=== PATIENT | male | born 1940 ===

== ENCOUNTER 2021-02-08 21:34 | Inpatient (IN) | payer MEDICARE ==
[~2021-02-08] VITALS: Ht 175.3 cm; Wt 69.1 kg
--- NOTE | 2021-02-08 22:07 | NUR ---
PT BIB [facility] TO ROOM 16, C/O RESP DISTRESS, AND HISTORY OF COPD. PT PLACED ON O2 SAT PROBE AND CR MONITOR, AND REMAINS ON O2 NC 2LPM, HIS BASELINE. TECH TO BEDSIDE AND EKG DONE, AND PA TO BEDSIDE TO EVAL ASSESS AND WRITE ORDERS. PT CALM AND COOPERATIVE AND IN NO ACUTE DISTRESS AT THIS TIME, WITH EASY RESPIRATIONS COMPARED TO WHEN HE WAS PICKED UP BY EMS, PER THE PT .
[2021-02-08 22:31] LABS: BASOPHILS % (AUTO) 0 % (0-1); EOSINOPHILS % (AUTO) 0 % (1-7); LYMPHOCYTES % (AUTO) 4 % (22-44); MEAN CORPUSCULAR HEMOGLOBIN 28.8 pg (27.5-34.5); MEAN CORPUSCULAR HGB CONC 33.6 g/dL (33.2-36.2); MEAN PLATELET VOLUME 7.8 fL (7.4-10.4); MONOCYTES % (AUTO) 7 % (2-9); NEUTROPHILS % (AUTO) 89 % (42-75); PLATELET COUNT 285 x10^3/uL (130-400); RED BLOOD COUNT 4.37 x10^6/uL (4.38-5.82)
[2021-02-08 22:39] LABS: ALANINE AMINOTRANSFERASE 13 U/L (12-78); ALBUMIN 2.4 g/dL (3.4-5.0); CALCIUM 8.4 mg/dL (8.5-10.1); CREATININE 1.79 mg/dL (0.7-1.3)
[2021-02-08 22:43] LABS: ALKALINE PHOSPHATASE 71 U/L (45-117); BILIRUBIN,TOTAL 0.7 mg/dL (0.2-1.0); TOTAL PROTEIN 7.5 g/dL (6.4-8.2); TROPONIN I < 0.015 ng/mL (0.000-0.045)
--- NOTE | 2021-02-08 22:56 | NUR ---
EXT [facility] [employer]ELOPER TO BEDSIDE AND [facility] BLOOD CULTURES. PT TO GO TO CT SCAN, AND WHEN BACK, ANTIBIOTICS WILL BE STARTED.
[2021-02-08] MEDS ORDERED: CEFTRIAXONE 1,000 MG in DEXTROSE 5% 50 ML IVPB ONE (23:00)
[2021-02-08] MEDS ORDERED: AZITHROMYCIN 500 MG in SODIUM CHLORIDE 0.9% 250 ML IV ONE (23:00)
[2021-02-08] MEDS: PLEASE ENTER ALLERGIES MC SCH (23:00)
[2021-02-08 23:10] LABS: ANION GAP 5 mmol/L (5-15); CHLORIDE 104 mmol/L (98-107)
--- NOTE | 2021-02-08 23:21 | NUR ---
PT SWABBED FOR COVID AND SAMPLE WALKED TO LAB. PT IN NO RESPIRATORY DISTRESS.
--- NOTE | 2021-02-09 01:02 | NUR ---
REPORT FROM JOHN SABA
[2021-02-09] MEDS: PLEASE ENTER ALLERGIES MC SCH ×3 (01:03→22:08)
[2021-02-09 01:30] VITALS: BP 103/64
[2021-02-09 08:40] VITALS: BP 97/57
[2021-02-09] MEDS ORDERED: ONDANSETRON 2MG/ML, 2ML IVPush PRN (09:00)
[2021-02-09] MEDS ORDERED: ACETAMINOPHEN 325 MG TABLET PO PRN (09:00)
[2021-02-09] MEDS ORDERED: FINA5TAB4 PO (11:10)
[2021-02-09] MEDS ORDERED: BUDE10.7 INH (11:10)
[2021-02-09] MEDS ORDERED: ASPI-963 PO (11:10)
[2021-02-09] MEDS ORDERED: OMEP-110 PO (11:10)
[2021-02-09] MEDS ORDERED: LISI2.5T PO (11:10)
[2021-02-09] MEDS ORDERED: SODI650T PO (11:10)
[2021-02-09] MEDS: CEFTRIAXONE 1,000 MG in DEXTROSE 5% 50 ML IVPB SCH (11:13)
[2021-02-09] MEDS: AZITHROMYCIN 500 MG in SODIUM CHLORIDE 0.9% 250 ML IV SCH (12:18)
[2021-02-09 13:43] VITALS: BP 117/68
[2021-02-09] MEDS: INSULIN LISPRO 100 UNITS/ML, PEN SQ-INSULIN SCH ×2 (16:46→22:08)
[2021-02-09 19:50] VITALS: BP 122/74
[2021-02-09] MEDS: SODIUM BICARBONATE 650 MG TABLET PO SCH (22:04)
[2021-02-10 01:30] VITALS: BP 116/68
[2021-02-10 05:55] LABS: BASOPHILS % (AUTO) 1 % (0-1); EOSINOPHILS % (AUTO) 3 % (1-7); LYMPHOCYTES % (AUTO) 8 % (22-44); MEAN CORPUSCULAR HEMOGLOBIN 29.1 pg (27.5-34.5); MEAN CORPUSCULAR HGB CONC 33.9 g/dL (33.2-36.2); MEAN PLATELET VOLUME 7.9 fL (7.4-10.4); MONOCYTES % (AUTO) 9 % (2-9); NEUTROPHILS % (AUTO) 79 % (42-75); PLATELET COUNT 279 x10^3/uL (130-400); RED BLOOD COUNT 4.15 x10^6/uL (4.38-5.82); RED CELL DISTRIBUTION WIDTH 13.2 % (9.4-14.8)
[2021-02-10 06:00] LABS: ALBUMIN 2.1 g/dL (3.4-5.0); ANION GAP 6 mmol/L (5-15); CALCIUM 8.5 mg/dL (8.5-10.1); CHLORIDE 106 mmol/L (98-107)
[2021-02-10 06:05] LABS: ALANINE AMINOTRANSFERASE 14 U/L (12-78); ALKALINE PHOSPHATASE 73 U/L (45-117); BILIRUBIN,TOTAL 0.6 mg/dL (0.2-1.0); CREATININE 1.44 mg/dL (0.7-1.3)
[2021-02-10] MEDS: PLEASE ENTER ALLERGIES MC SCH ×2 (07:26→14:16)
[2021-02-10] MEDS: INSULIN LISPRO 100 UNITS/ML, PEN SQ-INSULIN SCH ×4 (08:15→20:45)
[2021-02-10] MEDS: CEFTRIAXONE 1,000 MG in DEXTROSE 5% 50 ML IVPB SCH (08:26)
[2021-02-10 08:27] VITALS: BP 122/74
[2021-02-10] MEDS: SODIUM BICARBONATE 650 MG TABLET PO SCH ×2 (08:27→20:42)
[2021-02-10] MEDS ORDERED: OMEPRAZOLE 20 MG CAPSULE.DR PO SCH (09:00)
[2021-02-10] MEDS ORDERED: ASPIRIN 81 MG TABLET EC PO SCH (09:00)
[2021-02-10] MEDS ORDERED: FINASTERIDE 5 MG TABLET PO SCH (09:00)
[2021-02-10] MEDS ORDERED: LISINOPRIL 5 MG TABLET PO SCH (09:00)
[2021-02-10] MEDS: AZITHROMYCIN 500 MG in SODIUM CHLORIDE 0.9% 250 ML IV SCH (10:30)
[2021-02-10 14:46] VITALS: BP 101/58
[2021-02-10 19:26] VITALS: BP 111/66
[2021-02-10] MEDS ORDERED: HEPARIN 5,000 UNITS/ML, 1ML SQ SCH (19:30)
[2021-02-10] MEDS: HEPARIN 5,000 UNITS/ML, 1ML SQ SCH (20:43)
[2021-02-10] MEDS: RIFAMPIN 300 MG CAPSULE PO SCH (20:44)
[2021-02-10] MEDS: ETHAMBUTOL 400 MG TABLET PO SCH (20:45)
[2021-02-10] MEDS ORDERED: ETHAMBUTOL 400 MG TABLET PO SCH (21:00)
[2021-02-10] MEDS ORDERED: ACETYLCYSTEINE 10%, 10ML IPPB SCH (21:00)
[2021-02-10] MEDS ORDERED: RIFAMPIN 300 MG CAPSULE PO SCH (21:00)
[2021-02-10] MEDS ORDERED: ACETYLCYSTEINE 20%, 4ML IPPB SCH (21:00)
[2021-02-10] MEDS: ALBUTEROL/IPRATROPIUM 2.5MG/0.5MG, 3 ML HHN SCH (21:32)
[2021-02-11 01:32] VITALS: BP 149/65
[2021-02-11] MEDS: ALBUTEROL/IPRATROPIUM 2.5MG/0.5MG, 3 ML HHN SCH ×4 (04:07→21:10)
[2021-02-11] MEDS: SODIUM CHLORIDE INHALATION 7%, 4 ML NPPB SCH ×4 (04:07→21:10)
[2021-02-11] MEDS: OMEPRAZOLE 20 MG CAPSULE.DR PO SCH (05:44)
[2021-02-11 06:24] LABS: BASOPHILS % (AUTO) 1 % (0-1); EOSINOPHILS % (AUTO) 3 % (1-7); LYMPHOCYTES % (AUTO) 6 % (22-44); MEAN CORPUSCULAR HEMOGLOBIN 28.8 pg (27.5-34.5); MEAN CORPUSCULAR HGB CONC 33.5 g/dL (33.2-36.2); MONOCYTES % (AUTO) 10 % (2-9); NEUTROPHILS % (AUTO) 81 % (42-75); PLATELET COUNT 308 x10^3/uL (130-400); RED BLOOD COUNT 4.12 x10^6/uL (4.38-5.82); RED CELL DISTRIBUTION WIDTH 13.2 % (9.4-14.8)
[2021-02-11 06:33] LABS: ALANINE AMINOTRANSFERASE 16 U/L (12-78); ANION GAP 6 mmol/L (5-15); CALCIUM 8.9 mg/dL (8.5-10.1); CHLORIDE 105 mmol/L (98-107); CREATININE 1.33 mg/dL (0.7-1.3)
[2021-02-11 06:36] LABS: ALKALINE PHOSPHATASE 76 U/L (45-117); BILIRUBIN,TOTAL 0.9 mg/dL (0.2-1.0); TOTAL PROTEIN 7.3 g/dL (6.4-8.2)
[2021-02-11] MEDS: INSULIN LISPRO 100 UNITS/ML, PEN SQ-INSULIN SCH ×4 (07:00→20:47)
[2021-02-11 07:20] VITALS: BP 112/70
[2021-02-11] MEDS: HEPARIN 5,000 UNITS/ML, 1ML SQ SCH ×2 (08:38→21:14)
[2021-02-11] MEDS: ACETAMINOPHEN 325 MG TABLET PO PRN ×3 (08:38→19:10)
[2021-02-11] MEDS: ASPIRIN 81 MG TABLET EC PO SCH (08:38)
[2021-02-11] MEDS: SODIUM BICARBONATE 650 MG TABLET PO SCH ×2 (08:39→20:46)
[2021-02-11] MEDS: LISINOPRIL 5 MG TABLET PO SCH (08:40)
[2021-02-11] MEDS: RIFAMPIN 300 MG CAPSULE PO SCH ×2 (08:42→20:46)
[2021-02-11] MEDS: FINASTERIDE 5 MG TABLET PO SCH (08:42)
[2021-02-11] MEDS: ETHAMBUTOL 400 MG TABLET PO SCH ×2 (08:43→20:47)
[2021-02-11] MEDS ORDERED: AZITHROMYCIN 250 MG in SODIUM CHLORIDE 0.9% 250 ML IV SCH (09:00)
[2021-02-11] MEDS: CEFTRIAXONE 1,000 MG in DEXTROSE 5% 50 ML IVPB SCH (09:22)
[2021-02-11] MEDS: BUDESONIDE 0.5 MG/2 ML INHA NPPB SCH ×2 (10:00→21:10)
[2021-02-11] MEDS: AZITHROMYCIN 500 MG in SODIUM CHLORIDE 0.9% 250 ML IV SCH (11:20)
[2021-02-11 13:40] VITALS: BP 93/56
[2021-02-11] MEDS ORDERED: LIDOCAINE 4% TOPICAL SOLUTION 50 ML ONE (14:00)
[2021-02-11] MEDS ORDERED: LIDOCAINE GEL 2%, 5ML ONE (14:00)
[2021-02-11 19:05] VITALS: BP 92/54
[2021-02-11 19:35] VITALS: BP 84/62
[2021-02-11 22:52] VITALS: BP 95/57
[2021-02-11] MEDS: SODIUM CHLORIDE 0.9% 1,000 ML IV SCH (23:38)
[2021-02-12 01:55] VITALS: BP 125/65
[2021-02-12] MEDS: SODIUM CHLORIDE INHALATION 7%, 4 ML NPPB SCH ×3 (03:00→14:54)
[2021-02-12] MEDS: ALBUTEROL/IPRATROPIUM 2.5MG/0.5MG, 3 ML HHN SCH ×4 (03:00→21:02)
[2021-02-12] MEDS: OMEPRAZOLE 20 MG CAPSULE.DR PO SCH (06:00)
[2021-02-12 06:19] LABS: BASOPHILS % (AUTO) 1 % (0-1); EOSINOPHILS % (AUTO) 2 % (1-7); LYMPHOCYTES % (AUTO) 7 % (22-44); MEAN CORPUSCULAR HEMOGLOBIN 28.5 pg (27.5-34.5); MEAN CORPUSCULAR HGB CONC 33.2 g/dL (33.2-36.2); MEAN PLATELET VOLUME 8.2 fL (7.4-10.4); MONOCYTES % (AUTO) 12 % (2-9); NEUTROPHILS % (AUTO) 78 % (42-75); PLATELET COUNT 275 x10^3/uL (130-400); RED BLOOD COUNT 3.84 x10^6/uL (4.38-5.82); RED CELL DISTRIBUTION WIDTH 13.1 % (9.4-14.8)
[2021-02-12 06:31] LABS: CHLORIDE 107 mmol/L (98-107)
[2021-02-12 06:43] LABS: ALANINE AMINOTRANSFERASE 16 U/L (12-78); ALBUMIN 1.9 g/dL (3.4-5.0); ALKALINE PHOSPHATASE 85 U/L (45-117); ANION GAP 3 mmol/L (5-15); BILIRUBIN,TOTAL 1.1 mg/dL (0.2-1.0); CALCIUM 8.6 mg/dL (8.5-10.1); CREATININE 1.47 mg/dL (0.7-1.3); TOTAL PROTEIN 6.6 g/dL (6.4-8.2)
[2021-02-12] MEDS: HEPARIN 5,000 UNITS/ML, 1ML SQ SCH ×2 (08:00→20:49)
[2021-02-12] MEDS: BUDESONIDE 0.5 MG/2 ML INHA NPPB SCH ×2 (08:04→21:02)
[2021-02-12 08:24] VITALS: BP 106/62
[2021-02-12] MEDS: CEFTRIAXONE 1,000 MG in DEXTROSE 5% 50 ML IVPB SCH (08:40)
[2021-02-12] MEDS: INSULIN LISPRO 100 UNITS/ML, PEN SQ-INSULIN SCH ×4 (08:40→21:00)
[2021-02-12] MEDS: RIFAMPIN 300 MG CAPSULE PO SCH ×2 (08:47→20:48)
[2021-02-12] MEDS: ETHAMBUTOL 400 MG TABLET PO SCH ×2 (08:47→20:48)
[2021-02-12] MEDS: SODIUM BICARBONATE 650 MG TABLET PO SCH ×2 (08:48→20:48)
[2021-02-12] MEDS: AZITHROMYCIN 500 MG in SODIUM CHLORIDE 0.9% 250 ML IV SCH (11:14)
[2021-02-12] MEDS ORDERED: FENTANYL PF 100 MCG/2ML ONE (11:33)
[2021-02-12] MEDS ORDERED: MIDAZOLAM 1 MG/ML, 5ML ONE ×2 (11:33)
[2021-02-12] MEDS: SODIUM CHLORIDE 0.9% 1,000 ML IV SCH (12:50)
[2021-02-12] MEDS: ASPIRIN 81 MG TABLET EC PO SCH (12:56)
[2021-02-12] MEDS: FINASTERIDE 5 MG TABLET PO SCH (12:56)
[2021-02-12] MEDS: LISINOPRIL 5 MG TABLET PO SCH (12:57)
[2021-02-12 14:11] VITALS: BP 101/63
[2021-02-12 18:38] VITALS: BP 119/72
[2021-02-12 23:42] VITALS: BP 111/68
[2021-02-13] MEDS: SODIUM CHLORIDE 0.9% 1,000 ML IV SCH ×2 (05:37→18:37)
[2021-02-13] MEDS: OMEPRAZOLE 20 MG CAPSULE.DR PO SCH (05:37)
[2021-02-13 07:49] VITALS: BP 101/62
[2021-02-13 07:58] VITALS: BP 101/62
[2021-02-13 08:10] VITALS: BP 101/61
[2021-02-13] MEDS: ASPIRIN 81 MG TABLET EC PO SCH (08:13)
[2021-02-13] MEDS: ETHAMBUTOL 400 MG TABLET PO SCH ×2 (08:13→21:45)
[2021-02-13] MEDS: SODIUM BICARBONATE 650 MG TABLET PO SCH ×2 (08:13→21:44)
[2021-02-13] MEDS: RIFAMPIN 300 MG CAPSULE PO SCH ×2 (08:13→21:44)
[2021-02-13] MEDS: CEFTRIAXONE 1,000 MG in DEXTROSE 5% 50 ML IVPB SCH (08:14)
[2021-02-13] MEDS: HEPARIN 5,000 UNITS/ML, 1ML SQ SCH ×2 (08:14→21:44)
[2021-02-13] MEDS: FINASTERIDE 5 MG TABLET PO SCH (08:14)
[2021-02-13] MEDS: INSULIN LISPRO 100 UNITS/ML, PEN SQ-INSULIN SCH ×4 (08:33→21:45)
[2021-02-13] MEDS: ALBUTEROL/IPRATROPIUM 2.5MG/0.5MG, 3 ML HHN SCH ×3 (09:47→20:19)
[2021-02-13] MEDS: BUDESONIDE 0.5 MG/2 ML INHA NPPB SCH ×2 (09:47→20:19)
[2021-02-13] MEDS: LISINOPRIL 5 MG TABLET PO SCH (10:06)
[2021-02-13] MEDS: AZITHROMYCIN 500 MG in SODIUM CHLORIDE 0.9% 250 ML IV SCH (11:26)
[2021-02-13 14:00] VITALS: BP 103/56
[2021-02-13 21:43] VITALS: BP 118/64
[2021-02-14 03:45] VITALS: BP 110/63
[2021-02-14 06:22] LABS: BASOPHILS % (AUTO) 0 % (0-1); EOSINOPHILS % (AUTO) 3 % (1-7); LYMPHOCYTES % (AUTO) 6 % (22-44); MEAN CORPUSCULAR HEMOGLOBIN 28.8 pg (27.5-34.5); MEAN CORPUSCULAR HGB CONC 33.4 g/dL (33.2-36.2); MEAN PLATELET VOLUME 8.5 fL (7.4-10.4); MONOCYTES % (AUTO) 9 % (2-9); NEUTROPHILS % (AUTO) 82 % (42-75); PLATELET COUNT 282 x10^3/uL (130-400); RED BLOOD COUNT 3.74 x10^6/uL (4.38-5.82); RED CELL DISTRIBUTION WIDTH 13.1 % (9.4-14.8)
[2021-02-14] MEDS ORDERED: GUAIFENESIN 100 MG/5 ML, 10ML UDC ONE (06:42)
[2021-02-14] MEDS: INSULIN LISPRO 100 UNITS/ML, PEN SQ-INSULIN SCH ×4 (07:00→20:55)
[2021-02-14] MEDS: OMEPRAZOLE 20 MG CAPSULE.DR PO SCH (07:01)
[2021-02-14] MEDS: GUAIFENESIN 100 MG/5 ML, 5ML UDC PO PRN ×2 (07:02→21:58)
[2021-02-14] MEDS: SODIUM CHLORIDE 0.9% 1,000 ML IV SCH (07:03)
[2021-02-14 07:09] LABS: ALBUMIN 1.7 g/dL (3.4-5.0); ANION GAP 7 mmol/L (5-15); CALCIUM 8.5 mg/dL (8.5-10.1); CHLORIDE 109 mmol/L (98-107)
[2021-02-14 07:12] LABS: ALANINE AMINOTRANSFERASE 10 U/L (12-78); ALKALINE PHOSPHATASE 78 U/L (45-117); BILIRUBIN,TOTAL 0.6 mg/dL (0.2-1.0); CREATININE 1.21 mg/dL (0.7-1.3); TOTAL PROTEIN 6.3 g/dL (6.4-8.2)
[2021-02-14 08:12] VITALS: BP 123/71
[2021-02-14] MEDS: ETHAMBUTOL 400 MG TABLET PO SCH ×2 (08:32→20:46)
[2021-02-14] MEDS: CEFTRIAXONE 1,000 MG in DEXTROSE 5% 50 ML IVPB SCH (08:32)
[2021-02-14] MEDS: ASPIRIN 81 MG TABLET EC PO SCH (08:32)
[2021-02-14] MEDS: SODIUM BICARBONATE 650 MG TABLET PO SCH ×2 (08:32→20:46)
[2021-02-14] MEDS: HEPARIN 5,000 UNITS/ML, 1ML SQ SCH ×2 (08:32→20:46)
[2021-02-14] MEDS: FINASTERIDE 5 MG TABLET PO SCH (08:33)
[2021-02-14] MEDS: LISINOPRIL 5 MG TABLET PO SCH (08:33)
[2021-02-14] MEDS: RIFAMPIN 300 MG CAPSULE PO SCH ×2 (09:11→20:46)
[2021-02-14] MEDS: BUDESONIDE 0.5 MG/2 ML INHA NPPB SCH ×2 (09:25→20:19)
[2021-02-14] MEDS: ALBUTEROL/IPRATROPIUM 2.5MG/0.5MG, 3 ML HHN SCH ×3 (09:25→20:19)
[2021-02-14] MEDS: AZITHROMYCIN 500 MG in SODIUM CHLORIDE 0.9% 250 ML IV SCH (11:07)
[2021-02-14 13:05] VITALS: BP 101/63
[2021-02-14 16:11] LABS: CLOSTRIDIUM DIFFICILE ANTIGEN NEGATIVE; CLOSTRIDIUM DIFFICILE TOXIN NEGATIVE (Negative)
[2021-02-14] MEDS: LACTOBACILLUS CHEW TABLET PO SCH ×2 (16:25→20:46)
[2021-02-14 18:53] VITALS: BP 103/59
[2021-02-15 03:22] VITALS: BP 114/70
[2021-02-15 04:32] LABS: BASOPHILS % (AUTO) 2 % (0-1); EOSINOPHILS % (AUTO) 4 % (1-7); LYMPHOCYTES % (AUTO) 7 % (22-44); MEAN CORPUSCULAR HEMOGLOBIN 28.6 pg (27.5-34.5); MEAN PLATELET VOLUME 7.9 fL (7.4-10.4); MONOCYTES % (AUTO) 9 % (2-9); NEUTROPHILS % (AUTO) 79 % (42-75); PLATELET COUNT 279 x10^3/uL (130-400); RED BLOOD COUNT 3.61 x10^6/uL (4.38-5.82); RED CELL DISTRIBUTION WIDTH 13.4 % (9.4-14.8)
[2021-02-15 04:44] LABS: ANION GAP 7 mmol/L (5-15); CALCIUM 8.1 mg/dL (8.5-10.1); CHLORIDE 104 mmol/L (98-107)
[2021-02-15] MEDS: OMEPRAZOLE 20 MG CAPSULE.DR PO SCH (06:02)
[2021-02-15] MEDS: INSULIN LISPRO 100 UNITS/ML, PEN SQ-INSULIN SCH ×4 (07:00→21:00)
[2021-02-15 07:02] VITALS: BP 110/66
[2021-02-15] MEDS: RIFAMPIN 300 MG CAPSULE PO SCH ×2 (08:41→22:00)
[2021-02-15] MEDS: LACTOBACILLUS CHEW TABLET PO SCH ×3 (08:41→22:01)
[2021-02-15] MEDS: AZITHROMYCIN 500 MG TABLET PO SCH (08:41)
[2021-02-15] MEDS: LISINOPRIL 5 MG TABLET PO SCH (08:42)
[2021-02-15] MEDS: ASPIRIN 81 MG TABLET EC PO SCH (08:42)
[2021-02-15] MEDS: SODIUM BICARBONATE 650 MG TABLET PO SCH ×2 (08:42→22:01)
[2021-02-15] MEDS: ETHAMBUTOL 400 MG TABLET PO SCH ×2 (08:42→22:00)
[2021-02-15] MEDS: HEPARIN 5,000 UNITS/ML, 1ML SQ SCH ×2 (08:43→22:00)
[2021-02-15] MEDS: FINASTERIDE 5 MG TABLET PO SCH (08:49)
[2021-02-15] MEDS: BUDESONIDE 0.5 MG/2 ML INHA NPPB SCH ×2 (09:25→21:00)
[2021-02-15] MEDS: ALBUTEROL/IPRATROPIUM 2.5MG/0.5MG, 3 ML HHN SCH ×3 (09:25→21:00)
[2021-02-15 14:23] VITALS: BP 114/66
[2021-02-15 18:37] VITALS: BP 120/72
[2021-02-15] MEDS: DIPHENOXYLATE/ATROPINE TABLET PO SCH (22:00)
[2021-02-16 01:27] VITALS: BP 115/69
[2021-02-16] MEDS ORDERED: GUAIFENESIN 100 MG/5 ML, 10ML UDC ONE ×3 (01:35→20:47)
[2021-02-16] MEDS: GUAIFENESIN 100 MG/5 ML, 5ML UDC PO PRN ×3 (01:37→21:03)
[2021-02-16] MEDS: OMEPRAZOLE 20 MG CAPSULE.DR PO SCH (06:05)
[2021-02-16] MEDS: INSULIN LISPRO 100 UNITS/ML, PEN SQ-INSULIN SCH ×4 (07:41→21:19)
[2021-02-16] MEDS: HEPARIN 5,000 UNITS/ML, 1ML SQ SCH ×2 (07:42→21:03)
[2021-02-16] MEDS: LISINOPRIL 5 MG TABLET PO SCH (07:43)
[2021-02-16] MEDS: RIFAMPIN 300 MG CAPSULE PO SCH ×2 (07:43→21:03)
[2021-02-16] MEDS: ASPIRIN 81 MG TABLET EC PO SCH (07:43)
[2021-02-16] MEDS: DIPHENOXYLATE/ATROPINE TABLET PO SCH ×3 (07:43→21:05)
[2021-02-16] MEDS: ETHAMBUTOL 400 MG TABLET PO SCH ×2 (07:44→21:04)
[2021-02-16] MEDS: SODIUM BICARBONATE 650 MG TABLET PO SCH ×2 (07:44→21:03)
[2021-02-16] MEDS: AZITHROMYCIN 500 MG TABLET PO SCH (07:44)
[2021-02-16] MEDS: LACTOBACILLUS CHEW TABLET PO SCH ×3 (07:44→21:03)
[2021-02-16] MEDS: BENZONATATE 100 MG CAPSULE PO SCH ×3 (07:44→21:04)
[2021-02-16] MEDS: FINASTERIDE 5 MG TABLET PO SCH (07:45)
[2021-02-16 08:31] VITALS: BP 109/63
[2021-02-16] MEDS: BUDESONIDE 0.5 MG/2 ML INHA NPPB SCH ×2 (08:56→20:53)
[2021-02-16] MEDS: ALBUTEROL/IPRATROPIUM 2.5MG/0.5MG, 3 ML HHN SCH ×2 (08:56→20:52)
[2021-02-16 13:49] VITALS: BP 102/64
[2021-02-16 19:55] VITALS: BP 109/67
[2021-02-17 01:05] VITALS: BP 116/74
[2021-02-17] MEDS: OMEPRAZOLE 20 MG CAPSULE.DR PO SCH (05:57)
[2021-02-17 07:49] VITALS: BP 113/69
[2021-02-17] MEDS: INSULIN LISPRO 100 UNITS/ML, PEN SQ-INSULIN SCH ×4 (08:16→21:40)
[2021-02-17] MEDS: BENZONATATE 100 MG CAPSULE PO SCH ×3 (08:18→21:38)
[2021-02-17] MEDS: SODIUM BICARBONATE 650 MG TABLET PO SCH ×2 (08:18→21:39)
[2021-02-17] MEDS: AZITHROMYCIN 500 MG TABLET PO SCH (08:18)
[2021-02-17] MEDS: HEPARIN 5,000 UNITS/ML, 1ML SQ SCH ×2 (08:18→21:39)
[2021-02-17] MEDS: ASPIRIN 81 MG TABLET EC PO SCH (08:18)
[2021-02-17] MEDS: LISINOPRIL 5 MG TABLET PO SCH (08:19)
[2021-02-17] MEDS: RIFAMPIN 300 MG CAPSULE PO SCH ×2 (08:19→21:39)
[2021-02-17] MEDS: ETHAMBUTOL 400 MG TABLET PO SCH ×2 (08:19→21:38)
[2021-02-17] MEDS: LACTOBACILLUS CHEW TABLET PO SCH ×3 (08:19→21:39)
[2021-02-17] MEDS: FINASTERIDE 5 MG TABLET PO SCH (08:44)
[2021-02-17] MEDS ORDERED: DIPHENOXYLATE/ATROPINE TABLET PO SCH (09:00)
[2021-02-17] MEDS: ALBUTEROL/IPRATROPIUM 2.5MG/0.5MG, 3 ML HHN SCH (10:10)
[2021-02-17] MEDS: BUDESONIDE 0.5 MG/2 ML INHA NPPB SCH ×2 (10:10→20:30)
[2021-02-17] MEDS ORDERED: GUAIFENESIN/COD200MG-20MG/10ML LIQUID PO PRN (13:00)
[2021-02-17] MEDS ORDERED: DIPHENOXYLATE/ATROPINE TABLET PO PRN (13:00)
[2021-02-17 14:30] VITALS: BP 98/58
[2021-02-17] MEDS: SODIUM BICARBONATE 4.2%, 5ML NPPB SCH ×3 (15:35→22:45)
[2021-02-17] MEDS: ALBUTEROL/IPRATROPIUM 2.5MG/0.5MG, 3 ML NPPB SCH ×3 (15:35→22:45)
[2021-02-17 18:34] VITALS: BP 105/64
[2021-02-18 02:44] VITALS: BP 100/63
[2021-02-18] MEDS: OMEPRAZOLE 20 MG CAPSULE.DR PO SCH (05:34)
[2021-02-18 05:38] LABS: ANION GAP 6 mmol/L (5-15); CALCIUM 8.4 mg/dL (8.5-10.1); CHLORIDE 98 mmol/L (98-107)
[2021-02-18 05:39] LABS: CREATININE 1.46 mg/dL (0.7-1.3)
[2021-02-18 05:41] LABS: BASOPHILS % (AUTO) 1 % (0-1); EOSINOPHILS % (AUTO) 2 % (1-7); LYMPHOCYTES % (AUTO) 7 % (22-44); MEAN CORPUSCULAR HEMOGLOBIN 28.9 pg (27.5-34.5); MEAN CORPUSCULAR HGB CONC 33.9 g/dL (33.2-36.2); MEAN PLATELET VOLUME 7.9 fL (7.4-10.4); MONOCYTES % (AUTO) 10 % (2-9); NEUTROPHILS % (AUTO) 81 % (42-75); PLATELET COUNT 348 x10^3/uL (130-400); RED BLOOD COUNT 3.81 x10^6/uL (4.38-5.82); RED CELL DISTRIBUTION WIDTH 13.2 % (9.4-14.8)
[2021-02-18] MEDS: ALBUTEROL/IPRATROPIUM 2.5MG/0.5MG, 3 ML NPPB SCH ×5 (06:00→22:00)
[2021-02-18] MEDS: SODIUM BICARBONATE 4.2%, 5ML NPPB SCH ×5 (06:00→22:00)
[2021-02-18] MEDS: BUDESONIDE 0.5 MG/2 ML INHA NPPB SCH ×2 (06:52→19:10)
[2021-02-18 07:20] VITALS: BP 107/65
[2021-02-18] MEDS: FINASTERIDE 5 MG TABLET PO SCH (08:24)
[2021-02-18] MEDS: INSULIN LISPRO 100 UNITS/ML, PEN SQ-INSULIN SCH ×4 (08:24→21:19)
[2021-02-18] MEDS: HEPARIN 5,000 UNITS/ML, 1ML SQ SCH ×2 (08:24→21:18)
[2021-02-18] MEDS: ASPIRIN 81 MG TABLET EC PO SCH (08:25)
[2021-02-18] MEDS: BENZONATATE 100 MG CAPSULE PO SCH ×3 (08:25→22:24)
[2021-02-18] MEDS: ETHAMBUTOL 400 MG TABLET PO SCH ×2 (08:25→21:20)
[2021-02-18] MEDS: LISINOPRIL 5 MG TABLET PO SCH (08:25)
[2021-02-18] MEDS: RIFAMPIN 300 MG CAPSULE PO SCH ×2 (08:25→21:19)
[2021-02-18] MEDS: AZITHROMYCIN 500 MG TABLET PO SCH (08:25)
[2021-02-18] MEDS: LACTOBACILLUS CHEW TABLET PO SCH ×3 (08:25→21:19)
[2021-02-18] MEDS: SODIUM BICARBONATE 650 MG TABLET PO SCH ×2 (08:25→21:19)
[2021-02-18 14:30] VITALS: BP 109/64
[2021-02-18 20:36] VITALS: BP 104/67
[2021-02-19 02:50] VITALS: BP 112/69
[2021-02-19] MEDS: OMEPRAZOLE 20 MG CAPSULE.DR PO SCH (05:51)
[2021-02-19] MEDS: ALBUTEROL/IPRATROPIUM 2.5MG/0.5MG, 3 ML NPPB SCH (06:00)
[2021-02-19] MEDS: SODIUM BICARBONATE 4.2%, 5ML NPPB SCH (06:00)
[2021-02-19] MEDS: BUDESONIDE 0.5 MG/2 ML INHA NPPB SCH (07:01)
[2021-02-19 08:32] VITALS: BP 99/64
[2021-02-19] MEDS: HEPARIN 5,000 UNITS/ML, 1ML SQ SCH (08:35)
[2021-02-19] MEDS: BENZONATATE 100 MG CAPSULE PO SCH ×2 (08:36→16:45)
[2021-02-19] MEDS: INSULIN LISPRO 100 UNITS/ML, PEN SQ-INSULIN SCH ×3 (08:36→16:41)
[2021-02-19] MEDS: RIFAMPIN 300 MG CAPSULE PO SCH (08:38)
[2021-02-19] MEDS: AZITHROMYCIN 500 MG TABLET PO SCH (08:38)
[2021-02-19] MEDS: LISINOPRIL 5 MG TABLET PO SCH (08:38)
[2021-02-19] MEDS: LACTOBACILLUS CHEW TABLET PO SCH ×2 (08:39→16:45)
[2021-02-19] MEDS: SODIUM BICARBONATE 650 MG TABLET PO SCH (08:39)
[2021-02-19] MEDS: FINASTERIDE 5 MG TABLET PO SCH (08:40)
[2021-02-19] MEDS: ETHAMBUTOL 400 MG TABLET PO SCH (08:40)
[2021-02-19] MEDS: ASPIRIN 81 MG TABLET EC PO SCH (08:40)
[2021-02-19 13:08] VITALS: BP 96/60
[2021-02-19] MEDS ORDERED: ALBUTEROL/IPRATROPIUM 2.5MG/0.5MG, 3 ML ONE (13:45)
[2021-02-19] MEDS ORDERED: ACET325T26 PO (14:22)
[2021-02-19] MEDS ORDERED: RIFA300C3 PO (14:22)
[2021-02-19] MEDS ORDERED: AZIT500T10 PO (14:22)
[2021-02-19] MEDS ORDERED: IPRA3AMP30 NPPB (14:22)
[2021-02-19] MEDS ORDERED: HEPA50002 SQ (14:22)
[2021-02-19] MEDS ORDERED: ACID1TAB7 PO (14:22)
[2021-02-19] MEDS ORDERED: ETHA400T17 PO (14:22)
[2021-02-19] MEDS ORDERED: INSU100I11 SQ-INSULIN (14:46)
[2021-02-19] MEDS ORDERED: SODIUM BICARBONATE 4.2%, 5ML NPPB SCH (16:00)
[2021-02-19] MEDS ORDERED: ALBUTEROL/IPRATROPIUM 2.5MG/0.5MG, 3 ML NPPB SCH (16:00)
== END 2021-02-19 18:21 | DRG 177 ==
LOC: EDBD → MERGE 21:34 → ED 21:55 → EDIP 02-09 00:09 → 4WST 02-09 01:10
PROVIDERS: ADMIT Internal Medicine; ATTEND Internal Medicine
PROC: 0BJ08ZZ Inspection of Tracheobronchial Tree, Via Natural or Artificial Opening Endoscopic (ICD-10-PCS; principal; 2021-02-12 11:30)
DX: A31.0 Pulmonary mycobacterial infection (principal); J96.01 Acute respiratory failure with hypoxia; N17.9 Acute kidney failure, unspecified; J44.1 Chronic obstructive pulmonary disease with (acute) exacerbation; E46 Unspecified protein-calorie malnutrition; E87.2 Acidosis; J44.0 Chronic obstructive pulmonary disease with (acute) lower respiratory infection; K52.1 Toxic gastroenteritis and colitis; N18.4 Chronic kidney disease, stage 4 (severe); Z20.822 Contact with and (suspected) exposure to COVID-19; J18.9 Pneumonia, unspecified organism; B96.81 Helicobacter pylori [H. pylori] as the cause of diseases classified elsewhere; E11.22 Type 2 diabetes mellitus with diabetic chronic kidney disease; I25.10 Atherosclerotic heart disease of native coronary artery without angina pectoris; K27.9 Peptic ulcer, site unspecified, unspecified as acute or chronic, without hemorrhage or perforation; R62.7 Adult failure to thrive; T36.95XA Adverse effect of unspecified systemic antibiotic, initial encounter; K21.9 Gastro-esophageal reflux disease without esophagitis; E86.0 Dehydration; I12.9 Hypertensive chronic kidney disease with stage 1 through stage 4 chronic kidney disease, or unspecified chronic kidney disease; Z66 Do not resuscitate; Z75.1 Person awaiting admission to adequate facility elsewhere; Z79.4 Long term (current) use of insulin; Z80.3 Family history of malignant neoplasm of breast; Z86.73 Personal history of transient ischemic attack (TIA), and cerebral infarction without residual deficits; Z87.01 Personal history of pneumonia (recurrent); Z87.11 Personal history of peptic ulcer disease; Z87.891 Personal history of nicotine dependence; Z80.0 Family history of malignant neoplasm of digestive organs
CPT/HCPCS: 31624; 36415; 71045; 71250; 80048; 80053; 82962; 83036; 83735; 83880; 84145; 84484; 85025; 87015; 87040; 87070; 87102; 87107; 87116; 87205; 87206; 87252; 87305; 87324; 87449; 88112; 88305; 88312; 93005; 94640; 94667; 94668; 96365; 99152; 99153; G0378; J0456; J0696; J1644; J2250; J3010; J7626; U0005; J1815; J7030; J7050; U0003

== ENCOUNTER 2021-02-08 23:17 | Emergency (ER) | payer SELFPAY ==
[2021-02-09] MEDS ORDERED: CEFTRIAXONE 1,000 MG in SODIUM CHLORIDE 0.9% 50 ML IVPB SCH (01:00)
[2021-02-09] MEDS ORDERED: PHARMACY MAY ADJ FOR RENAL FX MC PRN (01:00)
[2021-02-09] MEDS ORDERED: ACETAMINOPHEN 650 MG SUPP PR PRN (01:00)
[2021-02-09] MEDS ORDERED: GUAIFENESIN/DM 200-20MG, 10ML UDC PO PRN (01:00)
[2021-02-09] MEDS ORDERED: ENOXAPARIN 40 MG/0.4 ML SQ SCH (01:00)
[2021-02-09] MEDS ORDERED: SODIUM CHLORIDE 0.9% 1,000ML IVBOLUS ONE (01:00)
[2021-02-09] MEDS ORDERED: AZITHROMYCIN 500 MG in SODIUM CHLORIDE 0.9% 250 ML IV SCH (01:00)
[2021-02-09] MEDS ORDERED: SODIUM CHLORIDE 0.9% 1,000 ML IV SCH (01:00)
[2021-02-09 07:08] LABS: BASOPHILS % (AUTO) 1 % (0-1); EOSINOPHILS % (AUTO) 1 % (1-7); LYMPHOCYTES % (AUTO) 8 % (22-44); MEAN CORPUSCULAR HEMOGLOBIN 28.7 pg (27.5-34.5); MEAN CORPUSCULAR HGB CONC 33.3 g/dL (33.2-36.2); MEAN PLATELET VOLUME 7.8 fL (7.4-10.4); MONOCYTES % (AUTO) 10 % (2-9); NEUTROPHILS % (AUTO) 81 % (42-75); PLATELET COUNT 290 x10^3/uL (130-400); RED BLOOD COUNT 4.22 x10^6/uL (4.38-5.82); RED CELL DISTRIBUTION WIDTH 13.4 % (9.4-14.8)
[2021-02-09 07:14] LABS: ALANINE AMINOTRANSFERASE 10 U/L (12-78); ALBUMIN 2.2 g/dL (3.4-5.0); ANION GAP 3 mmol/L (5-15); CHLORIDE 105 mmol/L (98-107); CREATININE 1.74 mg/dL (0.7-1.3)
[2021-02-09 07:17] LABS: ALKALINE PHOSPHATASE 67 U/L (45-117); BILIRUBIN,TOTAL 0.7 mg/dL (0.2-1.0); TOTAL PROTEIN 7.2 g/dL (6.4-8.2)
[2021-02-09] MEDS ORDERED: LISI2.5T PO (11:10)
[2021-02-09] MEDS ORDERED: FINA5TAB4 PO (11:10)
[2021-02-09] MEDS ORDERED: ASPI-963 PO (11:10)
[2021-02-09] MEDS ORDERED: BUDE10.7 INH (11:10)
[2021-02-09] MEDS ORDERED: SODI650T PO (11:10)
[2021-02-09] MEDS ORDERED: OMEP-110 PO (11:10)
== END 2021-02-09 ==
LOC: ED 23:54
DX: J44.1 Chronic obstructive pulmonary disease with (acute) exacerbation (principal); R09.02 Hypoxemia; J18.9 Pneumonia, unspecified organism; E11.9 Type 2 diabetes mellitus without complications; Z87.891 Personal history of nicotine dependence
CPT/HCPCS: 36415; 80053; 82962; 85025; 87449; 99283